=== PATIENT | female | born 1965 | race Caucasian/White ===

== ENCOUNTER 2022-05-22 15:03 | Outpatient (REF) | payer OTHER, SELFPAY ==
[2022-05-22 18:58] LABS: Free T4 (Free Thyroxine) 0.97 ng/dL (0.71-1.85); Thyroid Stimulating Hormone 1.61 uIU/mL (0.32-4.0)
== END 2022-05-22 15:04 | disposition home or self-care (01) ==
LOC: HO.MANLDS 15:03
PROVIDERS: Visit Provider Physician Assistant
DX: E03.8 Other specified hypothyroidism (principal)
CPT/HCPCS: 36415; 84439; 84443

== ENCOUNTER 2023-02-03 10:51 | Outpatient (REF) | payer OTHER, SELFPAY ==
[2023-02-03 14:10] LABS: MANUAL DIFF FLAG NO
[2023-02-03 14:16] LABS: Basophils Absolute Auto 0.1 X10*3/uL (0.0-0.2); Basophils Percent Auto 0.8 % (0-2); Eosinophils Absolute Auto 0.2 X10*3/uL (0.0-0.4); Eosinophils Percent Auto 2.8 % (0-4); Hematocrit 37.4 % (37.0-47.0); Hemoglobin 12.4 g/dl (12.0-16.0); Imm Gran Abs Auto 0.03 X10*3/uL (0.00-0.03); Imm Gran Pct Auto 0.4 % (0.0-0.4); Lymphocytes Absolute Auto 1.2 X10*3/uL (1.2-4.9); Lymphocytes Percent Auto 17.3 % (20-40); Mean Corpuscular HGB Conc 33.2 g/dl (31.0-35.0); Mean Corpuscular Hemoglobin 31.1 pg (27.0-33.0); Mean Corpuscular Volume 93.7 fL (80.0-98.0); Mean Platelet Volume 10.2 fL (9.4-12.3); Monocytes Absolute Auto 0.6 X10*3/uL (0.1-1.2); Monocytes Percent Auto 7.7 % (2-11); Neutrophils Absolute Auto 5.1 x10*3/uL (2.0-8.3); Platelet Count 247 X10*3/uL (160-400); Red Blood Count 3.99 X10*6/uL (4.20-5.50); Red Cell Distribution Width 12.9 % (11.0-16.0); White Blood Count 7.1 X10*3/uL (4.8-10.8)
[2023-02-03 14:50] LABS: Alanine Aminotransferase 43 U/L (0-31); Albumin Level 4.5 g/dL (3.5-5.0); Alkaline Phosphatase 117 U/L (39-117); Anion Gap 14 (12-20); Aspartate Amino Transferase 31 U/L (5-31); Bilirubin Total 0.5 mg/dL (0.0-1.0); Blood Urea Nitrogen 12 mg/dL (9-16); C Reactive Protein 0.82 mg/dL (< or = 0.50); Calcium 9.1 mg/dL (8.4-10.2); Carbon Dioxide 25 mmol/L (22-29); Chloride 106 mmol/L (96-108); Estimated Glomerular Filt Rate > 60; Glucose Random 103 mg/dL (60-115); Potassium 4.5 mmol/L (3.3-5.1); Sodium 140 mmol/L (135-145); Total Protein 7.1 g/dL (6.5-8.0)
[2023-02-03 14:54] LABS: Erythrocyte Sedimentation Rate 16 MM/HR (0-20)
[2023-02-03 15:21] LABS: Folate 3.4 ng/mL (> or = 4.0); Thyroid Stimulating Hormone 1.55 uIU/mL (0.32-4.0); Vitamin B12 372 pg/mL (200-900); Vitamin D 25-OH Total 24.5 ng/mL (>30)
== END 2023-02-03 10:52 | disposition home or self-care (01) ==
LOC: HO.MANLDS 10:51
PROVIDERS: Visit Provider Physician Assistant
DX: G25.2 Other specified forms of tremor (principal)
CPT/HCPCS: 36415; 80053; 82306; 82607; 82746; 84443; 85025; 85652; 86140

== ENCOUNTER 2023-03-03 10:44 | Outpatient (REF) | payer OTHER, SELFPAY ==
[2023-03-03 14:57] LABS: Folate 10.9 ng/mL (> or = 4.0); Vitamin D 25-OH Total 37.8 ng/mL (>30)
== END 2023-03-03 10:45 | disposition home or self-care (01) ==
LOC: HO.MANLDS 10:44
PROVIDERS: Visit Provider Physician Assistant
DX: E55.9 Vitamin D deficiency, unspecified (principal)
CPT/HCPCS: 36415; 82306; 82746

== ENCOUNTER 2024-02-06 10:32 | Outpatient (REF) | payer OTHER, SELFPAY ==
[2024-02-06 14:17] LABS: Erythrocyte Sedimentation Rate 19 MM/HR (0-20)
[2024-02-06 14:46] LABS: Alanine Aminotransferase 20 U/L (0-31); Albumin Level 4.3 g/dL (3.5-5.0); Alkaline Phosphatase 88 U/L (39-117); Amylase 30 U/L (28-100); Anion Gap 13 (12-20); Aspartate Amino Transferase 17 U/L (5-31); Blood Urea Nitrogen 13 mg/dL (9-16); C Reactive Protein 1.21 mg/dL (< or = 0.50); Calcium 9.3 mg/dL (8.4-10.2); Carbon Dioxide 27 mmol/L (22-29); Chloride 107 mmol/L (96-108); Estimated Glomerular Filt Rate > 60; Glucose Random 97 mg/dL (60-115); Lipase 22 U/L (8-78); Potassium 4.5 mmol/L (3.3-5.1); Sodium 142 mmol/L (135-145); Total Protein 7.3 g/dL (6.5-8.0)
[2024-02-06 15:03] LABS: Bilirubin Total 0.5 mg/dL (0.0-1.0)
[2024-02-09 20:08] LABS: Immunoglobulin E 45 kU/L (<OR=114)
== END 2024-02-06 10:33 | disposition home or self-care (01) ==
LOC: HO.MANLDS 10:32
PROVIDERS: Visit Provider Physician Assistant
DX: L23.9 Allergic contact dermatitis, unspecified cause (principal)
CPT/HCPCS: 36415; 80053; 82150; 82785; 83690; 85652; 86140

== ENCOUNTER 2024-02-20 11:01 | Outpatient (REF) | payer OTHER, SELFPAY ==
[2024-02-20 13:35] LABS: Estimated Average Glucose 97 mg/dL; Hemoglobin A1C 93.9754 umol/L
[2024-02-20 14:10] LABS: Alanine Aminotransferase 22 U/L (0-31); Albumin Level 4.4 g/dL (3.5-5.0); Alkaline Phosphatase 97 U/L (39-117); Anion Gap 14 (12-20); Aspartate Amino Transferase 23 U/L (5-31); Bilirubin Total 0.4 mg/dL (0.0-1.0); Blood Urea Nitrogen 14 mg/dL (9-16); Calcium 9.2 mg/dL (8.4-10.2); Carbon Dioxide 26 mmol/L (22-29); Chloride 106 mmol/L (96-108); Estimated Glomerular Filt Rate > 60; Glucose Random 89 mg/dL (60-115); Potassium 4.1 mmol/L (3.3-5.1); Sodium 142 mmol/L (135-145); Total Protein 7.4 g/dL (6.5-8.0)
== END 2024-02-20 11:02 | disposition home or self-care (01) ==
LOC: HO.MANLDS 11:01
PROVIDERS: Visit Provider Physician Assistant
DX: R73.01 Impaired fasting glucose (principal)
CPT/HCPCS: 36415; 80053; 83036

== ENCOUNTER 2025-05-13 10:28 | Outpatient (REF) | payer OTHER, SELFPAY ==
--- OUTSIDE RECORDS SUMMARY | 2025-05-13 11:29 | XMS_ITS | Clinical Summary ---
Author Organization [address] Address [address] [place] [address] Phone Care Team Providers Care Prototype Model Maker Name Role Phone Ivonne Olson MD Primary Care Provider [phone] Surgical History Surgery Date Site/Laterality Comments OTHER SURGICAL HISTORY 2003 PROCEDURE: OK EXC CYST/ABERRANT BREAST TISSUE OPEN 1/> LESION; COMMENT: benign BREAST SURGERY PROCEDURE: OK UNLISTED PROCEDURE BREAST; COMMENT: rt lump removal neg CERVICAL BIOPSY W/ LOOP ELECTRODE EXCISION PROCEDURE: HISTORICAL CONE BIOPSY OTHER SURGICAL HISTORY PROCEDURE: OK CAUTERY CERVIX CRYOCAUTERY INITIAL/REPEAT OTHER SURGICAL HISTORY 2009 PROCEDURE: OK HYSTEROSCOPY ENDOMETRIAL ABLATION BREAST BIOPSY 2016 Left PROCEDURE: BX BREAST; PERC NEEDLE CORE W/IMAG GUID; COMMENT: b9 BREAST BIOPSY 2009sih Right PROCEDURE: OK BX BREAST W/DEVICE 1ST LESION ULTRASOUND GUID; COMMENT: b9 Medical History Medical History Date Comments Sprain of lumbar region DX:Sprai n of lumbar region; COMMENT: degenerative disc Overweight(278.02) DX:Overweight (278.02) Historical Medical DX DX:Fam hx- cardiovas dis NEC Anemia, unspecified DX:Anemia, u nspecified; COMMENT: took Fe Other specified personal his tory presenting hazards to health(V15.89) DX:Other specifie d personal history presenting hazards to health(V15.89); COMMENT: 1988 Family History Medical History Relation Name Comments Breast cancer Aunt p 50s Other: cancer of breast Aunt p 50s fath ers side dx 52 Other cancer Father basal cell Diabetes Maternal Grandfather Lung cancer Maternal Grandfather continuous miner operator Diabetes Maternal Grandmother Heart attack Maternal Grandmother 60's Hyperlipidemia Mother Hypertension Mother Stroke Mother TIA 62 Alcohol/Drug Paternal Grandfather Other: Cirrhosis Paternal Grandfather 40' s Relation Name Status Comments Aunt p 50s Alive Father Maternal Grandfather Maternal Grandmother Mother Paternal Grandfather Social History Tobacco Use Types Packs/Day Years Used Date Smoking Tobacco: Former Cigarettes Q uit: 12/01/1999 Smokeless Tobacco: Never Alcohol Use Standard Drinks/Week Comments Yes 0 (1 standard drink = 0.6 oz pur e alcohol) Comments No Sex and Gender Information Value Date Recorded Sex Assigned at Not on file Legal Sex Female 1:06 AM EST Gender Identity Not on file Sexual Orientation Not on file Obstetrics History Para Term AB IAB SAB Ectopic Multiple Livin g Live Births 0 0 0 Last Filed Vital Signs Vital Sign Reading Time Taken Comments Blood Pressure - - Pulse - - Temperature - - Respiratory Rate - - Oxygen Saturation - - Inhaled Oxygen Concentration - - Weight 109 kg (240 lb) 10/09/2024 9:16 AM EST Height 167.6 cm (5' 6 ) 10/09/2024 9:16 AM EST Body Mass Index 38.74 10/09/2024 9:16 AM EST Plan of Treatment Health Maintenance Due Date Last Done Comments Cervical Cancer Screening: HPV 1986 Hepatitis B Vaccines (3 of 3 - 19+ 3-dose series) 08/03/2011 02/28/2011, 01/31/2011 DTaP,Tdap,and Td Vaccines (2 - Td or Tdap) 09/25/2011 09/25/2001 Pneumococcal Vaccine: 50+ Years (1 of 1 - PCV) 2015 Colorectal Cancer Screening: Colonoscopy 11/09/2022 Depression Screening 11/09/2022 HIV Screening 11/09/2022 Social Influencers of Health Screening 11/09/2022 COVID-19 Vaccine ( season) 2024 09/04/2023, 09/18/2022, 03/11/2022, Additional history exists Breast Cancer Screening 10/09/2026 10/09/20 24, 09/06/2023, 08/31/2022, Additional history exists Cholesterol Screening (Lipid Panel) 02/14/2027 02/14/2022 RSV Immunization Adult Patients (1 - 1-dose 75+ series) 2040 MMR Vaccines Aged Out 07/25/2003 No longer eligi ble based on patient's age to complete this topic Hepatitis A Vaccines Completed 02/28/2011, 02/23/20 09 Zoster Vaccines Completed 10/20/2018, 08/12/2018 Hepatitis C Screening Completed 10/16/2023 Influenza Vaccine Completed 10/04/2024, , 09/18/2022, Additional history exists HIB Vaccines Aged Out No longer eligi ble based on patient's age to complete this topic HPV Vaccines Aged Out No longer eligi ble based on patient's age to complete this topic IPV Vaccines Aged Out No longer eligi ble based on patient's age to complete this topic Meningococcal ACWY Vaccine Aged Out N o longer eligible based on patient's age to complete this topic Meningococcal B Vaccine Aged Out No l onger eligible based on patient's age to complete this topic Pneumococcal Vaccine: Pediatrics (0 to 5 Years) and At-Risk Patients (6 to 64 Years) Aged Out No longer eligible based on patient's age to complete this topic RSV Immunization Patients Under 20 months Aged Out No longer eligible based on patient's age to complete this topic Varicella Vaccines Aged Out No longer eligible based on patient's age to complete this topic Procedures Procedure Name Priority Date/Time Associated Diagnosis Comments MG MAMMO DIGITAL SCREENING W TOREY BILAT Routine 10/09/2024 9:18 AM EST Encounter for screening mammogram for breast cancer from Last 3 Months or Most Recently Relevant to Health Maintenance Results * MG Mammo Digital Screening w Torey bilat (10/09/2024 9:18 AM EST) Anatomical Region Laterality Modality Breast Bilateral Mammography 10/11/2024 12:1 1 PM EST Impressions 10/11/2024 12:14 PM EST Stable mammographic appearance of the breasts. ??No evidence of malignancy is seen. A negative mammogram in the presence of a clinically suspicious palpable abnormality does not preclude the possibility of malignancy or alter the indications for biopsy. BI-RADS: ??Category 1: Negative RECOMMENDATION(S): 1: Routine screening mammogram BILATERAL in 1 year. Mammo Location: [facility], [address] [place] [address], [id number], . -------- FINAL REPORT -------- Dictated By: Sheyla Eng Dictated Date: 10/11/2024 12:11 ET Assigned Physician: Sheyla nEg Reviewed and Electronically Signed By: Sheyla Eng Signed Date: 10/11/2024 12:14 ET Workstation ID: [id number] Transcribed By: Self Edit Transcribed Date: 10/11/2024 12:11 ET Narrative 10/11/2024 12:14 PM EST EXAM: MAMMO DIGITAL SCREENING W TOREY BILAT EXAM DATE: 10/09/2024 9:12 AM HISTORY: ??Breast cancer screen, avg risk, asymptomatic (Age => 40y) COMPARISON: Mammograms 09/06/2023, 08/31/2022, and 05/10/2021. TECHNIQUE: Bilateral digital breast tomosynthesis was performed in the CC and MLO projections. Computer aided detection with Tolerx AI 3D 3.1 was employed. TISSUE DENSITY: b. There are scattered areas of fibroglandular density. FINDINGS: No suspicious masses, grouped microcalcifications, or areas of architectural distortion are seen. The skin and vascularity are unremarkable. Procedure Note Sheyla Eng MD - 10/11/2024 EXAM: MAMMO DIGITAL SCREENING W TOREY BILAT EXAM DATE: 10/09/2024 9:12 AM HISTORY: Breast cancer screen, avg risk, asymptomatic (Age => 40y) COMPARISON: Mammograms 09/06/2023, 08/31/2022, and 05/10/2021. TECHNIQUE: Bilateral digital breast tomosynthesis was performed in the CCand MLO projections. Computer aided detection with iCAD Crude Area AI 3D 3.1was employed. TISSUE DENSITY: b. There are scattered areas of fibroglandular density. FINDINGS: No suspicious masses, grouped microcalcifications, or areas ofarchitectural distortion are seen. The skin and vascularity areunremarkable. IMPRESSION: Stable mammographic appearance of the breasts. No evidence of malignancyis seen. A negative mammogram in the presence of a clinically suspicious palpableabnormality does not preclude the possibility of malignancy or alter theindications for biopsy. BI-RADS: Category 1: Negative RECOMMENDATION(S): 1: Routine screening mammogram BILATERAL in 1 year. Mammo Location: [facility], [address] [place] [address], [phone], . -------- FINAL REPORT -------- Dictated By: Sheyla Eng Dictated Date: 10/11/2024 12:11 ET Assigned Physician: Sheyla Eng Reviewed and Electronically Signed By: Sheyla Eng Signed Date: 10/11/2024 12:14 ET Workstation ID: [id number] Transcribed By: Self Edit Transcribed Date: 10/11/2024 12:11 ET Cyndie LUCERO IMG BI PROCEDURES Final Res ult from Last 3 Months or Most Recently Relevant to Health Maintenance Insurance [facility] Care Teams Prototype Model Maker Relationship Specialty Start Date End Date Ivonne Olson MD PCP - General Internal Medicine 11/18/16
[2025-05-13 13:06] LABS: MANUAL DIFF FLAG NO
[2025-05-13 13:19] LABS: Basophils Percent Auto 0.4 % (0-2); Eosinophils Absolute Auto 0.2 X10*3/uL (0.0-0.4); Eosinophils Percent Auto 2.2 % (0-4); Hemoglobin 11.6 g/dl (12.0-16.0); Imm Gran Abs Auto 0.02 X10*3/uL (0.00-0.03); Imm Gran Pct Auto 0.3 % (0.0-0.4); Lymphocytes Absolute Auto 1.3 X10*3/uL (1.2-4.9); Lymphocytes Percent Auto 19.2 % (20-40); Mean Corpuscular HGB Conc 33.1 g/dl (31.0-35.0); Mean Corpuscular Hemoglobin 31.1 pg (27.0-33.0); Mean Corpuscular Volume 93.8 fL (80.0-98.0); Mean Platelet Volume 9.9 fL (9.4-12.3); Monocytes Absolute Auto 0.6 X10*3/uL (0.1-1.2); Monocytes Percent Auto 8.1 % (2-11); Neutrophils Absolute Auto 4.7 x10*3/uL (2.0-8.3); Neutrophils Percent Auto 69.8 % (45-73); Platelet Count 263 X10*3/uL (160-400); Red Blood Count 3.73 X10*6/uL (4.20-5.50); Red Cell Distribution Width 13.4 % (11.0-16.0); White Blood Count 6.8 X10*3/uL (4.8-10.8)
[2025-05-13 14:07] LABS: Alanine Aminotransferase 11 U/L (0-31); Albumin Level 4.4 g/dL (3.5-5.0); Alkaline Phosphatase 76 U/L (39-117); Anion Gap 11 (12-20); Aspartate Amino Transferase 16 U/L (5-31); Bilirubin Total 0.4 mg/dL (0.0-1.0); Blood Urea Nitrogen 12 mg/dL (9-16); Calcium 8.9 mg/dL (8.4-10.2); Carbon Dioxide 24 mmol/L (22-29); Chloride 109 mmol/L (96-108); Estimated Glomerular Filt Rate > 60; Free T4 (Free Thyroxine) 1.05 ng/dL (0.71-1.85); Glucose Random 89 mg/dL (60-115); Potassium 4.3 mmol/L (3.3-5.1); Sodium 140 mmol/L (135-145); Thyroid Stimulating Hormone 1.47 uIU/mL (0.32-4.0); Total Protein 6.9 g/dL (6.5-8.0)
== END 2025-05-13 10:29 | disposition home or self-care (01) ==
LOC: HO.MANLDS 10:28
PROVIDERS: Visit Provider Physician Assistant
DX: E03.8 Other specified hypothyroidism (principal)
CPT/HCPCS: 36415; 80053; 84439; 84443; 85025